=== PATIENT | female | born 1990 | race Caucasian/White ===

== ENCOUNTER 2020-05-17 06:51 | Outpatient (CLI) | payer OTHER ==
--- NOTE | 2020-05-17 08:26 | ULT ---
ULTRASOUND TRANSVAGINAL DOPPLER DUPLEX: DATE: 05/17/2020. TIME: 7:25 a.m. HISTORY: A 29-year-old female status post miscarriage 1 month ago, with still elevated serum beta HCG levels a nd cramping pelvic pain. TECHNIQUE: Endovaginal transducer used to evaluate intrapelvic contents with haynes scale, color flow, and spectra l analysis. Transabdominal pelvic ultrasound was not performed. FINDINGS: Uterus is retroverted/retroflexed. Endometrial stripe is 19 mm thickness at both the uterine corpus and at the fundus. At the proximal corpus of the uterus, the endometrial stripe has mixed echogenicity material including anechoic, and hypoechoic material. The rest of the endometrial stripe has intermediate echogenicity similar to roby t of the myometrium. There is hypervascularity of the endometrial material at the body and fundus of the uterus. No free fluid in the cul-de-sac. Prominent bilateral parametrial veins. Bilateral ovaries are normal in size with multiple prominent follicles. Blood flow demonstrated in both ovaries by Doppler. IMPRESSION: Abnormal, thickened (19 mm) hypervascular endometrium, with heterogeneous echogenicity material. Thi s raises the possibility of retained products of conception or an atypical pattern of gestational tro phoblastic disease. POS: OFF
== END 2020-05-17 06:52 | disposition home or self-care (01) ==
LOC: BICULT 06:51
PROVIDERS: ATTEND Family Medicine
DX: O03.9 Complete or unspecified spontaneous abortion without complication (principal); R93.89 Abnormal findings on diagnostic imaging of other specified body structures
CPT/HCPCS: 76856

== ENCOUNTER 2021-01-04 09:38 | Outpatient (CLI) | payer OTHER | END 2021-01-04 09:39 | disposition home or self-care (01) | LOC: BICULT 09:38 | PROVIDERS: ATTEND Family Medicine | DX: Z34.82 Encounter for supervision of other normal pregnancy, second trimester (principal); Z3A.21 21 weeks gestation of pregnancy | CPT/HCPCS: 76805 ==